=== PATIENT | female | born 1995 | race African-American/Black ===

== ENCOUNTER 2016-08-12 11:50 | Emergency (ER) | payer SELFPAY ==
[~2016-08-12] VITALS: Ht 162.6 cm; Wt 64.0 kg
[2016-08-12 11:52] VITALS: BP 125/76
[2016-08-12 13:55] LABS: HCG UR OBC PASS
== END 2016-08-12 14:41 | disposition home or self-care (01) ==
LOC: ED 14:18
DX: N61.0 Mastitis without abscess (principal); R10.2 Pelvic and perineal pain; N89.8 Other specified noninflammatory disorders of vagina; J45.909 Unspecified asthma, uncomplicated
CPT/HCPCS: 81003; 81025; 87210; 87491; 87591; 87808; 99284